=== PATIENT | male | born 1990 | race Caucasian/White ===

== ENCOUNTER 2020-06-19 20:43 | Emergency (ER) | payer BC | END 2020-06-19 21:35 | disposition home or self-care (01) | LOC: MW.ED 20:43 | DX: Z48.02 Encounter for removal of sutures (principal) | CPT/HCPCS: 99281 ==

== ENCOUNTER 2020-11-25 22:11 | Emergency (ER) | payer OTHER, BC ==
[2020-11-25] MEDS ORDERED: Sodium Chloride 0.9% 2.5 ML Syringe FLUSH PRN (22:18)
[2020-11-25] MEDS ORDERED: Sodium Chloride 0.9% 10 ML Syringe FLUSH PRN (22:18)
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
--- NOTE | 2020-11-25 23:03 | CR ---
Indication: Injury and pain Technique: Left wrist 3 view Comparison: None Findings: Bones: Alignment is normal. No fractures or bone lesions. Joint spaces: Unremarkable. Soft tissues: Unremarkable. Impression: No sign of acute injury in the left wrist. Dictated by Erasmo Weaver MD @ Nov 25 2020 11:01PM Signed by Dr. Erasmo Weaver @ Nov 25 2020 11:02PM
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
[2020-11-25 23:11] LABS: BLOOD UREA NITROGEN,BUN 14 mg/dL (7.0-18.0); CARBON DIOXIDE,CO2 29.5 mmol/L (21.0-32.0); CHLORIDE,CL 107 mmol/L (98-107); GLUCOSE RANDOM 92 mg/dL (74-106); POTASSIUM,K 3.9 mmol/L (3.5-5.1); SODIUM,NA 147 mmol/L (136-148)
[2020-11-25] MEDS ORDERED: Bacitracin Oint 1 GM U/D Packet TOP ONE (23:17)
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
== END 2020-11-25 23:30 | disposition home or self-care (01) ==
LOC: MW.ED 22:11
DX: S13.4XXA Sprain of ligaments of cervical spine, initial encounter (principal); S60.212A Contusion of left wrist, initial encounter; S80.02XA Contusion of left knee, initial encounter; S30.0XXA Contusion of lower back and pelvis, initial encounter; V38.5XXA Driver of three-wheeled motor vehicle injured in noncollision transport accident in traffic accident, initial encounter
CPT/HCPCS: 36415; 71045; 71045-26; 72125; 72125-26; 72170; 72170-26; 73090-26-LT; 73090-LT; 73110-26-LT; 73110-LT; 73562-26-LT; 73562-LT; 80048; 85025; 99284-25; 99285